=== PATIENT | female | born 1980 | race Caucasian/White ===

== ENCOUNTER 2024-12-30 08:58 | Emergency (ER) | payer BC, SELFPAY ==
[2024-12-30 09:09] VITALS: BP 135/85; PULSE 72; RESP 16; TEMP 36.5; O2SAT 99
--- NOTE | 2024-12-30 09:23 | ED.SKABFB ---
HPI - Skin/Abscess/Foreign Bdy General Chief complaint: Skin/Abscess/Foreign Body Stated complaint: Shingles Time Seen by Provider: 12/30/24 09:00 Source: patient Mode of arrival: ambulatory Limitations: no limitations History of Present Illness HPI narrative: Ailin is a 44-year-old female patient presenting to the clinic today with complaints possible shingles rash. She reports symptoms started around 2-3 days ago with a sharp stabbing pain and she developed rash over the past 24 hours. Rashes to the right upper chest wall, right arm, into the back of her neck. She reports she is having a sharp stabbing pain up the side of her neck. Denies any fevers or chills. Related Data Allergies Allergy/AdvReac Type Severity Reaction Status Date / Time Penicillins Allergy Unknown Verified 12/12/11 16:26 Review of Systems Review of Systems: Pertinent positives per HPI. Patient denies any fever, chills, headache, visual changes, dizziness, cough, shortness of breath, chest pain, palpitations, nausea, vomiting, diarrhea, constipation, abdominal pain, or any urinary issues. [facility] Family History Family History Grandparent Family history of coronary artery disease Social History Social History Smoking status: Never smoker Alcohol intake: never Comments At the time of my signature, I reviewed and agree with the nursing past medical, surgical, social, and family history. There is no relevant family history pertinent to the patient complaint. Exam Narrative: General: Well-developed, well nourished, in no apparent distress Head: Normocephalic, atraumatic. Cardio: Regular rate and rhythm, s1 and s2 normal, no murmur appreciated. Resp: Clear to auscultation bilaterally, no rhonchi, rales, wheezing or rubs. Integumentary: Mulga, warm, and dry, red rash with erythemic base with fascicular lesions to the right chest wall, right shoulder right anterior neck, and posterior neck Course Course Emergency Course: Portions of this record may have been created with voice recognition software. Level of Care: Express Care Visit Vital Signs Vital signs: Vital Signs Temperature 36.5 C 12/30/24 09:09 Pulse Rate 72 12/30/24 09:09 Respiratory Rate 16 12/30/24 09:09 Blood Pressure 135/85 12/30/24 09:09 Pulse Oximetry 99 12/30/24 09:09 Oxygen Delivery Room Air 12/30/24 09:09 Temperature 36.5 C 12/30/24 09:09 Pulse Rate 72 12/30/24 09:09 Respiratory Rate 16 12/30/24 09:09 Blood Pressure 135/85 12/30/24 09:09 Pulse Oximetry 99 12/30/24 09:09 Oxygen Delivery Room Air 12/30/24 09:09 Vital signs reviewed MDM - Skin/Abscess/Foreign Bdy MDM Narrative Medical decision making narrative: At the time of visit patient is resting comfortably on the exam table. Patient appears to be nontoxic. Plan: I suspect patient has herpes zoster. Prescription for acyclovir was sent to the pharmacy. Recommend using lidocaine patches to help alleviate pain. Supportive measures were discussed with the patient and they voiced understanding discharge instructions and agrees to treatment plan. Return precautions reviewed Differential Diagnosis Differential diagnosis: Likely abscess of skin or subcutaneous tissue, viral exanthem, dermatophytosis, urticaria, herpes zoster, allergic reaction to drug, cellulitis, eczema, insect bites, impetigo and contact dermatitis Discharge Plan Discharge Clinical Impression: Shingles Qualifiers: Herpes zoster complications: without complications Qualified Code(s): B02.9 - Zoster without complications Patient Disposition: Home, Self-Care Condition: Stable Instructions: Antibiotic Form, Shingles (ED) Additional Instructions: Take acyclovir as prescribed May apply lidocaine patches to the affected areas to help alleviate pain May take Tylenol/Motrin as needed for pain Shingles are considered contagious until they are scabbed over Do not go around anyone who is immunocompromised or Keep the rash covered if open and draining Follow-up with your primary care doctor in 3-5 days if symptoms persist. If rash develops near the eye or you have any visual changes go to the emergency room Patient Language: Congolese Prescriptions: New acyclovir 800 mg tablet 800 mg PO Q4H 7 Days Qty: 42 0RF Rx Instructions: while awake; give 5 doses in 24 hours Follow-up/Referrals: PHYSICIAN,TIE PULLER [Primary Care Provider] - Time of Disposition: 09:20 Quality NIHSS Nursing Documentation ED NIHSS nursing documentation: reviewed/agree
== END 2024-12-30 09:24 | disposition home or self-care (01) ==
PROVIDERS: Emergency Provider Nurse Practitioner Family
DX: B02.9 Zoster without complications (principal)
CPT/HCPCS: 99213; G0463

== ENCOUNTER 2025-07-16 13:42 | Emergency (ER) | payer BC, SELFPAY ==
[2025-07-16 13:55] VITALS: BP 119/81; PULSE 72; RESP 16; TEMP 36.8; O2SAT 99
--- NOTE | 2025-07-16 14:25 | ED_ITS ---
HPI - Skin/Abscess/Foreign Bdy General Chief complaint: Skin/Abscess/Foreign Body Stated complaint: RASH Time Seen by Provider: 07/16/25 14:05 Source: patient and RN notes reviewed Mode of arrival: ambulatory Limitations: no limitations History of Present Illness HPI narrative: 45-year-old female presents Express Care complaining of rash for 1 week. Patient started on her neck and now spread to her right flank and to her right lower abdomen. Patient says a week ago she was pulling weeds with his believe she got in contact with any poison julio. Patient denies any changes to her daily habits. Patient reports that is pruritic his sometimes jarrell. Patient has been trying Benadryl cream or hydrocortisone without relief. Patient denies any sick symptoms, fevers, body aches, chills, nausea vomiting, chest pain, shortness of breath, or any other symptoms. Related Data Allergies Allergy/AdvReac Type Severity Reaction Status Date / Time Penicillins Allergy Mild Rash Verified 07/16/25 13:59 Review of Systems Review of Systems: CONSTITUTIONAL: Denies fever, chills, or sweats. EYES: Denies visual changes, redness, or discharge. ENT: Denies rhinorrhea, congestion, sore throat, or otalgia. CARDIOVASCULAR: Denies chest pain, palpitations, or edema. RESPIRATORY: Denies cough or dyspnea. GASTROINTESTINAL: Denies abdominal pain, nausea, vomiting, or diarrhea. GENITOURINARY: Denies dysuria or hematuria. SKIN: Denies rash or itching. MUSCULOSKELETAL: Denies back pain, joint pain, or myalgia. NEUROLOGIC: Denies headache, numbness, or weakness. PSYCHIATRIC: Denies anxiety or depression. All other systems reviewed are negative, except as documented in HPI. PMFSH Family History Family History Grandparent Family history of coronary artery disease Social History Social History Smoking status: Never smoker Alcohol intake: never Comments At the time of my signature, I reviewed and agree with the nursing past medical, surgical, social, and family history. There is no relevant family history pertinent to the patient complaint. Exam Narrative: GENERAL: This is a well-nourished, well-developed adult, in no apparent distress. They are non ill-appearing, nontoxic appearing. HEAD: normocephalic, atraumatic. EYES: Sclera clear/white. Conjunctiva normal. Vision is grossly intact. Extraocular movements intact EARS: External ears normal, Hearing grossly intact. NOSE: External nose normal THROAT: Mucous membranes moist, NECK: Neck supple CARDIOVASCULAR: Regular rate and rhythm RESPIRATORY: Respiratory rate normal, respiratory effort nonlabored, no respiratory distress SKIN: Erythematous macular, vesicular, papular rash scattered throughout the patient's neck, her right flank rash falls and linear distribution from scratching, and in the rash scattered throughout her right lower abdomen. No area of fluctuance, no induration, nontender to palpate. No exudate. NEURO: awake, alert, and oriented to person, place and time. There were no obvious focal neurologic abnormalities. EXTREMITIES: No joint tenderness, effusion, or edema noted. Course Course Emergency Course: Portions of this record may have been created with voice recognition software Level of Care: Express Care Visit Vital Signs Vital signs: Vital Signs Temperature 98.3 F 07/16/25 13:55 Pulse Rate 72 07/16/25 13:55 Respiratory Rate 16 07/16/25 13:55 Blood Pressure 119/81 07/16/25 13:55 Pulse Oximetry 99 07/16/25 13:55 Temperature 98.3 F 07/16/25 13:55 Pulse Rate 72 07/16/25 13:55 Respiratory Rate 16 07/16/25 13:55 Blood Pressure 119/81 07/16/25 13:55 Pulse Oximetry 99 07/16/25 13:55 Reviewed MDM - Skin/Abscess/Foreign Bdy MDM Narrative Medical decision making narrative: Likely patient has contact dermatitis. Will prescribe a course of prednisone. Discussed physical exam findings. Advised supportive measures and signs/symptoms to go to the ER. Pt is appropriate for outpt treatment and f/u. Differential Diagnosis Differential diagnosis: Likely dermatophytosis, urticaria, cellulitis, eczema and contact dermatitis Critical Care Time Critical Care Time Critical Care Time: No Discharge Plan Discharge Clinical Impression: Contact dermatitis Patient Disposition: Home Condition: Stable Instructions: Contact Dermatitis (ED) Additional Instructions: Take the prednisone as directed. Take it in the morning and take it with food. You may use calamine lotion, camphor, hydrocortisone cream, Benadryl cream as needed for itchiness symptoms. You may also take Zyrtec or Claritin as needed for allergy or itchiness symptoms. Follow-up PCP in 3-5 days. If you develop any worsening redness, swelling, discharge, fevers, breathing problems, or any other concerns please go to the ER immediately. Patient Language: [place]an Prescriptions: New prednisone 20 mg tablet 40 mg PO DAILY 5 Days Qty: 10 0RF Follow-up/Referrals: PHYSICIAN,CONSUMER INSIGHT MANAGER [Primary Care Provider, Internal Medicine] Time of Disposition: 14:24
== END 2025-07-16 14:28 | disposition home or self-care (01) ==
DX: L25.9 Unspecified contact dermatitis, unspecified cause (principal)
CPT/HCPCS: 99213; G0463